=== PATIENT | female | born 1940 | race Caucasian/White ===

== ENCOUNTER 2018-04-07 10:56 | Outpatient (CLI) | payer MEDICARE, OTHER ==
[2015-06-21 20:15] VITALS: BP 131/60
== END 2018-04-07 10:58 ==
LOC: RAD 10:56
PROVIDERS: ATTEND Family Medicine
DX: M81.0 Age-related osteoporosis without current pathological fracture (principal)
CPT/HCPCS: 77080

== ENCOUNTER 2019-04-04 15:21 | Emergency (ER) | payer MEDICARE, OTHER ==
--- NOTE | 2019-04-04 15:25 | ED Physician Documentation ---
General Adult - HISTORIAN Historian: patient - HPI Stated Complaint: abdominal pain Chief Complaint: Abdominal Pain Onset: minutes (35) Timing: better Severity: mild Further Comments: yes (She states she was walking around [place] and started to have severe abdominal pain (mid abdomen) no injury. SHe states she has some mild burning with urination. No fever. She had a constipated stool yesterday am. She does take narcotics 3 x per day. She states the pain is now less and more mid lower abdomen. Increased with palpation. No other complaints) - ROS CONST: no problems - PAST HX Past History: other (osteoporosis ) Immunizations: UTD Allergies/Adverse Reactions: Allergies Allergy/AdvReac Type Severity Reaction Status Date / Time codeine Allergy Unknown Verified 04/04/19 16:02 prochlorperazine edisylate Allergy Unknown Verified 04/04/19 16:02 [From Compazine] prochlorperazine maleate Allergy Unknown Verified 04/04/19 16:02 [From Compazine] Home Medications: Ambulatory Orders Medication Instructions Recorded Esomeprazole Magnesium [Nexium] 40 mg PO DAILY 08/10/13 Fexofenadine HCl [Mone] 180 mg PO DAILY u2 08/10/13 Fluticasone Propionate [Flonase] 16 gm NS DAILY 08/10/13 Calcitonin,[place],Synthetic 1 inh INH DIRECTED 06/21/15 [Miacalcin] Hydrocodone/Acetaminophen [[place] 1 tab PO DIRECTED 06/21/15 5-325 Tablet] - SOCIAL HX Smoking History: non-smoker Alcohol Use: none Drug Use: none - FAMILY HX Family History: No - VITAL SIGNS Vital Signs: Vital Signs Temp Pulse Resp BP Pulse Ox 131/60 06/21/15 20:08 - REVIEWED ASSESSMENTS Nursing Assessment Reviewed: Yes Vitals Reviewed: Yes ED Results Lab/Radiology - Radiology Radiology Impressions: Examination: Abdomen series History: PAIN MID ABDOMEN Findings: 2 views obtained of the chest and abdomen. No abnormal dilation of the large or small bowel. Stool throughout the large bowel. No suspicious calcification projecting over the renal fossa or the lower pelvic region. Osteopenia. Vertebral body degenerative changes. Curvature to the chronic parenchymal interstitial changes. Elevation of the right hemidiaphragm. Scattered granuloma. No blunting of the costophrenic margins. Impression: Large bowel stool. No obstruction. No suspicious calcifications by plain film sensitivity. No focal consolidation/effusion. Electronically signed on Apr 04, 2019 4:34:04 PM CDT by: Jase Noriega General Adult Physical Exam - PHYSICAL EXAM GENERAL APPEARANCE: no distress EENT: eye inspection normal, no signs of dehydration NECK: normal inspection RESPIRATORY: no resp distress, chest non-tender, breath sounds normal CVS: reg rate & rhythm, heart sounds normal ABDOMEN: soft, normal bowel sounds, no distension, tenderness (mid / bladder with palpation ). No: rigid BACK: normal inspection, no CVA tenderness SKIN: warm/dry, normal color EXTREMITIES: non-tender, normal range of motion, no evidence of injury, no edema NEURO: oriented X3 Discharge Clincal Impression: UTI (urinary tract infection) Qualifiers: Urinary tract infection type: site unspecified Hematuria presence: without hematuria Qualified Code(s): N39.0 - Urinary tract infection, site not specified Constipation Qualifiers: Constipation type: unspecified constipation type Qualified Code(s): K59.00 - Constipation, unspecified Referrals: Brianda Rendon MD [Primary Care Provider] - 2 Days Comments: 1. Macrobid 100 mg take 1 by mouth twice daily x 7 days 2. 1/2 bottle mag citrate if no bowel movement in 2 hours repeat other 1/2 bottle 3. Increase fluids and fiber due to narcotic use 4. See PCP in 2-4 days 5. Return to ER for any increasing concerns Condition: Stable Disposition: 01 HOME, SELF-CARE Decision to Admit: NO Date of Decison to Admit: 04/04/19 Decision Time: 16:42
--- NOTE | 2019-04-04 16:35 | Diagnostic Imaging Report ---
PAPITO CUELLAR [facility] [address] [facility] [address] [place], [place]. [address] Report Submission Date: Apr 04, 2019 4:34:04 PM CDT Patient Study Name: KELLY GOODWIN Date: Apr 04, 2019 3:59:29 PM CDT Modality Type: DX Gender: F Description: ABD SERIES PA CHEST : 39 Institution: [facility] Physician: PAPITO CUELLAR Examination: Abdomen series History: PAIN MID ABDOMEN Findings: 2 views obtained of the chest and abdomen. No abnormal dilation of the large or small bowel. Stool throughout the large bowel. No suspicious calcification projecting over the renal fossa or the lower pelvic region. Osteopenia. Vertebral body degenerative changes. Curvature to the chronic parenchymal interstitial changes. Elevation of the right hemidiaphragm. Scattered granuloma. No blunting of the costophrenic margins. Impression: Large bowel stool. No obstruction. No suspicious calcifications by plain film sensitivity. No focal consolidation/effusion. Electronically signed on Apr 04, 2019 4:34:04 PM CDT by: Jase HE
[2019-04-04 16:51] VITALS: BP 138/79
[2019-04-05 06:42] LABS: APPEARANCE,URINE CLOUDY (CLEAR); COLOR,URINE YELLOW (YELLOW); OCCULT BLOOD,URINE 2+ (NEGATIVE); UROBILINOGEN URINE 0.2 Eu (0.2-1.0)
== END 2019-04-04 16:46 | disposition home or self-care (01) ==
LOC: ED 15:21
DX: N39.0 Urinary tract infection, site not specified (principal)
CPT/HCPCS: 74022; 81002; 87086; 99282